=== PATIENT | female | born 1965 | race Caucasian/White ===

== ENCOUNTER → 2016-11-18 13:01 | Outpatient (CLI) | payer MEDICARE ==
[2014-01-20 09:24] VITALS: BMI 31.3
[~2016-11-18 13:01] MED LIST: CLONAZEPAM0.25 MG/TA PO; DYRENIUM50 MG PO; GEODON80 MG PO; LOTENSIN40 MG PO; PHENERGAN25 M1 PO; ZANAFLEX4 MG PO
== END | disposition home or self-care (01) ==
LOC: D.RAD 11-04 10:15
DX: C84.4 Peripheral T-cell lymphoma, not elsewhere classified (principal)